=== PATIENT | male | born 1970 | race Caucasian/White ===

== ENCOUNTER 2022-01-14 16:57 | Emergency (ER) | payer OTHER ==
[~2022-01-14 16:57] MED LIST: GABAPENTIN400 MG PO; IBUPROFEN600 MG PO; NORFLEX 100 MG100 MG PO; PERCOCET 5/325 T1 EA PO; ZOFRAN4 MG PO
[2022-01-14] MEDS ORDERED: AMOX TR-K CLV1 EAC4 PO (19:04)
[2022-01-14] MEDS ORDERED: ZESTRIL20 MG PO (19:04)
== END 2022-01-14 19:29 | disposition home or self-care (01) ==
LOC: ER1 16:57
DX: J01.90 Acute sinusitis, unspecified (principal); I10 Essential (primary) hypertension; Z85.830 Personal history of malignant neoplasm of bone; E11.9 Type 2 diabetes mellitus without complications; J44.9 Chronic obstructive pulmonary disease, unspecified; F17.200 Nicotine dependence, unspecified, uncomplicated; Z79.899 Other long term (current) drug therapy
CPT/HCPCS: 99282